=== PATIENT | female | born 1950 | race Two or more races ===

== ENCOUNTER 2025-03-26 00:36 | Inpatient (IN) | payer MEDICAID ==
[~2025-03-26] VITALS: Ht 157.5 cm; Wt 55.8 kg
[2025-03-26] VITALS (11 sets, daily range): BP systolic 102–133; BP diastolic 61–77; TEMP 97.5–98.2; O2SAT 95–100
[2025-03-26] MEDS: IV NS 0.9% 1,000 ML BAG IV ONE ×2 (01:10→01:18)
[2025-03-26] MEDS ORDERED: ACETAMINOPHEN ES 500 MG TABLET ONE (01:11)
[2025-03-26] MEDS: ACETAMINOPHEN ES 500 MG TABLET PO ONE (01:13)
[2025-03-26 01:27] LABS: PLATELET COUNT (AUTO) 262 K/uL (150-450); RED BLOOD CELL COUNT(AUTO) 4.80 MIL/uL (4.0-5.2); RED CELL DISTRIBUTION WIDTH 12.6 % (11.5-15.0); WHITE BLOOD COUNT (AUTO) 6.4 K/uL (4.3-11.0)
[2025-03-26 01:32] LABS: CALCIUM, SERUM 8.5 mg/dL (8.5-10.1); CREATININE 0.8 mg/dL (0.6-1.3); SODIUM SERUM 137 mmol/L (136-145); UREA NITROGEN, BLOOD 20 mg/dL (7-18)
[2025-03-26 01:36] LABS: INR 0.98 (0.91-1.10)
[2025-03-26 01:40] LABS: LACTIC ACID 2.1 mmol/L (0.4-2.0)
[2025-03-26 01:49] LABS: APPEARANCE,URINE CLEAR (CLEAR); BLOOD, URINE TRACE-INTA Ery/uL (NEGATIVE); LEUKOCYTE ESTERASE ,URINE 1+ (NEGATIVE); NITRITE, URINE NEGATIVE (NEGATIVE); UGLUCOSE NEGATIVE (NEGATIVE)
[2025-03-26 01:51] LABS: ADD URINE CULTURE YES
[2025-03-26] MEDS ORDERED: AZITHROMYCIN 500 MG VIAL ONE (02:01)
[2025-03-26] MEDS ORDERED: CEFTRIAXONE 1GM BAG (ER ONLY) 50 ML IV ONE (02:01)
[2025-03-26] MEDS: CEFTRIAXONE 1GM BAG (ER ONLY) 1 GM/50 ML PIGGYBACK IV ONE (02:04)
[2025-03-26 02:05] LABS: ASPARTATE AMINOTRANSFERASE 30 U/L (15-37); NT-PRO BNP 878 pg/mL (0-125); TOTAL PROTEIN, SERUM 8.1 g/dL (6.4-8.2)
[2025-03-26] MEDS: AZITHROMYCIN 500 MG in IV D5W 250 ML IV ONE (02:19)
[2025-03-26] MEDS ORDERED: ASPIRIN 325 MG TABLET ONE (02:20)
[2025-03-26] MEDS: ASPIRIN 325 MG TABLET PO ONE (02:22)
[2025-03-26] MEDS ORDERED: MAG HYDROX/AL HYDROX/SIMETH 30 ML UDC PO PRN (03:00)
[2025-03-26] MEDS ORDERED: ONDANSETRON HCL/PF 4 MG/2 ML VIAL IVP PRN (03:00)
[2025-03-26] MEDS ORDERED: HYDROCODONE/APAP 5/325MG TABLET PO PRN (03:00)
[2025-03-26] MEDS ORDERED: TEMAZEPAM 15 MG CAPSULE PO PRN (03:00)
[2025-03-26] MEDS ORDERED: MAGNESIUM HYDROXIDE 30 ML UDC PO PRN (03:00)
[2025-03-26] MEDS ORDERED: DEXTROSE 50%-WATER 50 ML DISP.SYRIN IV PRN (03:00)
[2025-03-26] MEDS ORDERED: ACETAMINOPHEN 325 MG TABLET PO PRN (03:00)
[2025-03-26] MEDS ORDERED: Z GUARD REMEDY 4 OZ OINT TP PRN (03:00)
[2025-03-26] MEDS ORDERED: ENOXAPARIN SODIUM 40 MG/0.4 ML DISP.SYRIN SQ ONE (03:37)
[2025-03-26] MEDS: ENOXAPARIN SODIUM 40 MG/0.4 ML DISP.SYRIN SQ SCH (03:40)
[2025-03-26] MEDS: BLOOD SUGAR DIAGNOSTIC 1 EACH STRIP IN SCH (07:16)
[2025-03-26] MEDS: PANTOPRAZOLE 40 MG TABLET.DR PO SCH (09:34)
[2025-03-26] MEDS: ASPIRIN 81 MG TAB.CHEW PO SCH (09:34)
[2025-03-26] MEDS ORDERED: FUROSEMIDE 20 MG/2 ML VIAL IV SCH (10:00)
[2025-03-26] MEDS: IPRATROPIUM NEB FS 0.5 MG/2.5 ML AMPUL.NEB NEB PRN (10:36)
[2025-03-26] MEDS: ALBUTEROL FS 2.5 MG/3 ML VIAL.NEB NEB PRN (10:36)
[2025-03-26] MEDS: ATORVASTATIN 10 MG TABLET PO SCH (10:49)
[2025-03-26] MEDS: POTASSIUM CHLORIDE 20 MEQ TAB.PRT.SR PO SCH (10:49)
[2025-03-26] MEDS: GUAIFENESIN/D-METHORPHAN HB 5 ML UDC PO PRN (21:15)
[2025-03-26] MEDS: INSULIN REGULAR, HUMAN 100 UNIT/ML 3 ML VIAL SQ PRN (21:30)
[2025-03-27] VITALS (12 sets, daily range): BP systolic 112–138; BP diastolic 63–82; TEMP 97.3–98.3; O2SAT 96–100
[2025-03-27] MEDS: CEFTRIAXONE 1 G in IV D5W 50 ML IV SCH (02:57)
[2025-03-27] MEDS: AZITHROMYCIN 250 MG TABLET PO SCH (02:57)
[2025-03-27] MEDS: CEFTRIAXONE 1GM BAG (ER ONLY) 50 ML IV ONE (02:58)
[2025-03-27] MEDS ORDERED: AZITHROMYCIN 500 MG in IV D5W 250 ML IV SCH (03:00)
[2025-03-27 07:22] LABS: PLATELET COUNT (AUTO) 247 K/uL (150-450); RED BLOOD CELL COUNT(AUTO) 4.32 MIL/uL (4.0-5.2); RED CELL DISTRIBUTION WIDTH 12.6 % (11.5-15.0); WHITE BLOOD COUNT (AUTO) 3.7 K/uL (4.3-11.0)
[2025-03-27 07:54] LABS: CALCIUM, SERUM 8.5 mg/dL (8.5-10.1); CREATININE 0.6 mg/dL (0.6-1.3); PHOSPHORUS 4.0 mg/dL (2.5-4.9); SODIUM SERUM 144.0 mmol/L (136-145); UREA NITROGEN, BLOOD 13.0 mg/dL (7-18)
[2025-03-27 08:10] LABS: LDL 102.0 mg/dL (0-99)
[2025-03-28] VITALS (8 sets, daily range): BP systolic 109–121; BP diastolic 67–72; TEMP 97.6–97.7; O2SAT 93–100
[2025-03-28 07:17] LABS: CALCIUM, SERUM 8.3 mg/dL (8.5-10.1); CREATININE 0.8 mg/dL (0.6-1.3); SODIUM SERUM 145.0 mmol/L (136-145); UREA NITROGEN, BLOOD 12.0 mg/dL (7-18)
[2025-03-28] MEDS ORDERED: GUAI5LIQ10 PO (10:45)
[2025-03-28] MEDS ORDERED: LEVO500T90 PO (10:45)
[2025-03-29 19:08] LABS: *MYCOPLASMA PNEUMONIAE IgM <770 U/mL (0-769)
== END 2025-03-28 20:08 | disposition home or self-care (01) | DRG 139 ==
LOC: ER 00:43 → TELE1 02:53 → MEDSG1 03-27 08:50
PROVIDERS: ADMIT Nurse Practitioner Acute Care; ATTEND Nurse Practitioner Acute Care
DX: J15.9 Unspecified bacterial pneumonia (principal); J96.01 Acute respiratory failure with hypoxia; I21.A1 Myocardial infarction type 2; E87.20 Acidosis, unspecified; N39.0 Urinary tract infection, site not specified; B96.89 Other specified bacterial agents as the cause of diseases classified elsewhere; I05.0 Rheumatic mitral stenosis; N18.9 Chronic kidney disease, unspecified; I50.9 Heart failure, unspecified; Z98.891 History of uterine scar from previous surgery; R79.89 Other specified abnormal findings of blood chemistry; J20.9 Acute bronchitis, unspecified; R73.03 Prediabetes
CPT/HCPCS: 36415; 71045-TC; 71250-TC; 76770-TC; 80048-TC; 80061-TC; 80076-TC; 81001; 82962-TC; 83605-TC; 83735-TC; 83880; 84100-TC; 84443-TC; 84484-TC; 85025-TC; 85730-TC; 86713; 86738; 87040-TC; 87086-TC; 93307-TC; 94760-TC; 94799-TC; A4223; G0378; J0456; J0696; J1650; J1815; J7050; J7060